=== PATIENT | female | born 1945 | race Caucasian/White ===

== ENCOUNTER → 2022-10-29 10:58 | Outpatient (BNVA) | payer MEDICARE, BC, SELFPAY | PROVIDERS: PCP Family Medicine Adult Medicine; Visit Provider Anesthesiology Pain Medicine | DX: M54.16 Radiculopathy, lumbar region (principal); M47.816 Spondylosis without myelopathy or radiculopathy, lumbar region; M48.00 Spinal stenosis, site unspecified; I34.0 Nonrheumatic mitral (valve) insufficiency; I95.1 Orthostatic hypotension | CPT/HCPCS: 72110; 99204 ==

== ENCOUNTER → 2022-11-07 08:26 | Outpatient (BNVA) | payer MEDICARE, BC, SELFPAY | PROVIDERS: PCP Family Medicine Adult Medicine; Referring Provider Family Medicine Adult Medicine; Visit Provider Physician Assistant | DX: S22.000A Wedge compression fracture of unspecified thoracic vertebra, initial encounter for closed fracture (principal); S32.000A Wedge compression fracture of unspecified lumbar vertebra, initial encounter for closed fracture; M51.37 Other intervertebral disc degeneration, lumbosacral region; M47.816 Spondylosis without myelopathy or radiculopathy, lumbar region; M48.00 Spinal stenosis, site unspecified; W19.XXXA Unspecified fall, initial encounter | CPT/HCPCS: 72100; 99203 ==

== ENCOUNTER 2022-11-28 09:02 | Emergency (ER) | payer MEDICARE, BC, SELFPAY ==
[2022-11-28 09:09] VITALS: BP 132/67; PULSE 90; RESP 16; O2SAT 96; BMI 28.3
--- NOTE | 2022-11-28 09:26 | CT_ITS ---
WS: [id number] CT ABDOMEN PELVIS TECHNIQUE: Contrast-enhanced CT of the abdomen and pelvis with coronal and sagittal reformatted image s. CLINICAL INFORMATION: abd pain COMPARISON: None. DLP: 569.[address] scans at [facility] use at least one of these dose optimization techniques: automated e xposure control; mA and/or kV adjustment per patient size (includes targeted exams where dose is matc hed to clinical indication); or iterative reconstruction. FINDINGS: Images are degraded in the pelvis due to bilateral THAs. Extensive diffuse pneumobilia with air in th e common bile duct. Common bile duct tapers normally distally. Prominent common bile duct measures 10 mm with mild intrahepatic biliary ductal dilatation. This may be physiologic postcholecystectomy. Ga llbladder is not visualized but no cholecystectomy clips seen. Mild diffuse fatty infiltration liver. Normal portal vein and splenic vein. Lung bases are well aera nirav. Small opacity in the RIGHT lower lobe measuring 11 mm likely focal atelectasis or fibrosis. Norm al GE junction. Normal pancreatic parenchymal enhancement. No evidence of acute pancreatitis. Portal vein and splenic vein are patent. Mild intrahepatic biliary duct dilatation. Prior hysterectomy. Large bilateral renal cysts largest on the LEFT measuring 8.9 x 6.2 CM. Bilateral renal cortical atro phy. No hydronephrosis. Adrenal glands are normal. Normal caliber abdominal aorta. Celiac and SMA gabriele ear patent. Moderate stenosis of the SMA origin. Sigmoid diverticulosis. No evidence of acute diverticulitis. Colon is otherwise normal in appearance. Mild fecal retention. A few fluid-filled small bowel loops of small bowel in the abdomen are normal caliber. No evidence of high-grade obstruction. No free air. Advanced spondylitic changes lumbar spin e. Grade 1 anterolisthesis L4 on L5. CT/CT abdomen pelvis w con* [id number] IMPRESSION: 1. Diffuse pneumobilia with air in the common bile duct. Common bile duct tape rs normally distally. Gallbladder is not visualized. Pneumobilia is likely aminta gn. Mild intrahepatic biliary ductal dilatation. 2. Sigmoid diverticulosis. No evidence of acute diverticulitis. 3. A few fluid-filled distended loops of small bowel in the abdomen with mild mucosal enhancement can be seen with small bowel enteritis. No evidence of high -grade obstruction. 4. Large bilateral renal cysts largest in the LEFT measuring 6.2 x 8.9 CM. No hydronephrosis. 5. Normal caliber abdominal aorta. 6. Bilateral THAs degrade images in the pelvis. 7. No other acute findings. Notified Ugo Do DO at 11/28/2022 11:42 AM.
--- NOTE | 2022-11-28 09:30 | W.ED.ABDPA2 ---
HPI - Abdominal Pain General: Chief Complaint: Abdominal Pain Stated Complaint: unable to control bladder Time Seen by Provider: 11/28/22 09:25 Source: patient Mode of arrival: ambulatory History of Present Illness: 76-year-old female presents emergency room with difficulty controlling her bladder as well as having diarrhea. She epigastric pain intermittently last several months. She has a history of pancreatitis and congestive heart failure. Marked worsening swelling around 2 AM with severe diarrhea denies hematochezia melena hematemesis coffee-ground emesis MD elicited complaint: abdominal pain Onset (ago): hour(s) Pain Consistency: constant Location: Epigastric and RUQ Severity: moderate Quality: cramping Radiation: none Exacerbating factors: nothing Relieving factors: nothing Associated Symptoms: Reports anorexia, bloating, change in bowel habits, GI cramping, diarrhea, nausea and poor appetite; Denies belching, change in stool character, chills, coffee ground emesis, constipation, dyspepsia, dysuria, excessive flatus, fever(s), heartburn, hematochezia, hematuria, hematemesis, fecal incontinence, loose stools, melena, syncope and vomiting Review of Systems Const: Denies: fever(s), chills, fatigue or malaise ENMT: Denies: throat pain, ear or mastoid pain, nasal discharge or nasal congestion Card: Denies: chest pain, palpitations, irregular heart rhythm, edema or syncope Resp: Denies: dyspnea, productive cough or non-productive cough GI: Reports: abdominal pain, nausea, diarrhea, bloating, GI cramping and change in bowel habits; Denies: vomiting, hematemesis, coffee ground emesis, heartburn, constipation, belching, excessive flatus, fecal incontinence, change in stool character, hematochezia or melena : Denies: flank pain, dysuria, urinary frequency, urinary urgency or hematuria Skin/Breast: Denies: rash or pruritus PFSH ED PFSH: Medical History (Updated 11/28/22 @ 11:54 by Ugo Do DO) Cardiomyopathy CHF (congestive heart failure) Chronic pain CKD (chronic kidney disease) Congenital spondylolisthesis of lumbar region Depression Diverticulosis small intestine Mitral valve insufficiency Orthostatic hypotension Pleural effusion Pneumonia Pulmonary emboli Pulmonary HTN Restless leg Spinal stenosis Syncope Trigger finger (acquired) Wedge compression fracture of eleventh thoracic vertebra Surgical History (Updated 11/28/22 @ 11:56 by Ugo Do DO) H/O shoulder replacement History of cholecystectomy History of hip replacement History of knee replacement Social History Smoking and tobacco status: never smoked Second hand smoke exposure: No Smoking risk assessment/counseling performed?: No Alcohol intake: never Desire information about alcohol rehabilitation?: No Counseling given: No Desire information about substance/drug rehabilitation?: No Counseling given: No Physical Exam Const: GENERAL APPEARANCE: cooperative and comfortable ORIENTATION/CONSCIOUSNESS: Yes awake, Yes oriented to person, Yes oriented to place and Yes oriented to time HENMT: COMMON NORMALS: normocephalic, atraumatic and hearing grossly normal bilaterally HEAD & SCALP: normocephalic and atraumatic Resp: COMMON NORMALS: normal respiratory effort, No retractions, No use of accessory muscles and clear to auscultation bilaterally AUSCULTATION: clear to auscultation bilaterally Cardio: COMMON NORMALS: regular rate, regular rhythm and No murmurs present (Cardio) RATE: regular rate RHYTHM: regular rhythm GI: COMMON NORMALS: No hepatosplenomegaly present AUSCULTATION: Yes normoactive bowel sounds PALPATION: Yes Tenderness to palpation present (GI) (Epigastric right upper quadrant), No Guarding due to palpation present (GI) and Yes No hepatosplenomegaly present Extremity: COMMON NORMALS: normal to inspection, capillary refill normal, no clubbing, cyanosis or edema, no calf tenderness and no pedal edema Neuro: SENSORIUM/ORIENTATION: Yes oriented to person, Yes oriented to place and Yes oriented to time Skin: COMMON NORMALS: no rashes or lesions noted GENERAL SKIN EXAM: no rashes or lesions noted Course Vital Signs: Vital signs: Vital Signs Pulse Rate 71 11/28/22 09:39 Respiratory Rate 16 11/28/22 09:39 Blood Pressure 132/67 11/28/22 09:39 Pulse Oximetry 100 11/28/22 09:39 Oxygen Delivery Me thod 11/28/22 09:09 MDM - Abdominal Pain Medical Decision Making Labs imaging and EKG reviewed. Patient has mild gastroenteritis there is no sign of pancreatitis. She is feeling much better after fluids we will discharge her home antiemetics clinical diet 24 to 40 hours advance as tolerated return if has further problems. Medical Records I reviewed the patient's medical records. Lab Data I reviewed the patient's lab results. 11/28/22 09:34 11/28/22 09:34 Labs/Radiology: Radiology Impressions Abdomen/Pelvis CT 11/28/22 09:26 IMPRESSION: 1. Diffuse pneumobilia with air in the common bile duct. Common bile duct tapers normally distally. Gallbladder is not visualized. Pneumobilia is likely benign. Mild intrahepatic biliary ductal dilatation. 2. Sigmoid diverticulosis. No evidence of acute diverticulitis. 3. A few fluid-filled distended loops of small bowel in the abdomen with mild mucosal enhancement can be seen with small bowel enteritis. No evidence of high-grade obstruction. 4. Large bilateral renal cysts largest in the LEFT measuring 6.2 x 8.9 CM. No hydronephrosis. 5. Normal caliber abdominal aorta. 6. Bilateral THAs degrade images in the pelvis. 7. No other acute findings. Notified Ugo Do DO at 11/28/2022 11:42 AM. Laboratory Results WBC 10.3 10^3/uL (4.0-10.0) H 11/28/22 09:34 RBC 3.90 10^6/uL (4.1-5.3) L 11/28/22 09:34 Hgb 11.3 g/dL (11.5-15.3) L 11/28/22 09:34 Hct 36.2 % (37.0-47.0) L 11/28/22:34 MCV 92.8 fl (81-99) 11/28/22 09:34 MCH 29.0 pg (28.0-34.0) 11/28/22 09:34 MCHC 31.2 g/dL (30.0-36.0) 11/28/22 09:34 RDW 13.6 % (12.1-15.1) 11/28/22 09:34 Plt Count 278 10^3/cmm (130-400) 11/28/22 09:34 MPV 9.6 fL (7.4-10.4) 11/28/22 09:34 Neut % (Auto) 69.0 % 11/28/22:34 Lymph % (Auto) 20.5 % 11/28/22 09:34 Carolina % (Auto) 6.8 % 11/28/22 09:34 Eos % (Auto) 3.1 % 11/28/22 09:34 Baso % (Auto) 0.3 % 11/28/22 09:34 Neut # (Auto) 7.14 10^3/uL (1.8-7.7) 11/28/22 09:34 Lymph # (Auto) 2.1 10^3/uL (0.8-4.8) 11/28/22 09:34 Carolina # (Auto) 0.7 10^3/uL (0.2-0.9) 11/28/22 09:34 Eos # (Auto) 0.3 10^3/uL (0.0-0.8) 11/28/22 09:34 Baso # (Auto) 0.0 10^3/uL (0.0-0.1) 11/28/22 09:34 Nucleated RBC % (auto) 0 % 11/28/22 09:34 Nucleated RBCs # 0.0 /100WBC 11/28/22 09:34 Sodium 140 mmol/L (136-145) 11/28/22 09:34 Potassium 4.6 mmol/L (3.5-5.1) 11/28/22 09:34 Chloride 101 mmol/L (98-107) 11/28/22 09:34 Carbon Dioxide 27 mmol/L (22-29) 11/28/22 09:34 Anion Gap 16.6 (5-19) 11/28/22 09:34 BUN 28 mg/dL (8-23) H 11/28/22 09:34 Creatinine 1.5 mg/dL (0.5-0.9) H 11/28/22 09:34 GFR Calculation Not Reportable 11/28/22 09:34 Glucose 103 mg/dL (65-115) 11/28/22 09:34 Calculated Osmolality 296 mOsm/kg (285-295) H 11/28/22 09:34 Calcium 9.4 mg/dL (8.5-10.5) 11/28/22 09:34 Total Bilirubin 0.5 mg/dL (0.15-1.2) 11/28/22 09:34 AST 22 U/L (0-32) 11/28/22 09:34 ALT 12 U/L (0-33) 11/28/22 09:34 Alkaline Phosphatase 104 U/L (35-105) 11/28/22 09:34 Total Protein 7.4 g/dL (6.6-8.7) 11/28/22 09:34 Albumin 4.3 g/dL (3.5-5.2) 11/28/22 09:34 Globulin 3.1 g/dL (1.3-4.6) 11/28/22 09:34 Lipase 32 U/L (13-60) 11/28/22 09:34 Urine Color Yellow (Yellow) 11/28/22 09:47 Urine Appearance Clear (CLEAR) 11/28/22 09:47 Urine pH 5 (5-7) 11/28/22 09:47 Ur Specific Skippers 1.015 (1.005-1.030) 11/28/22 09:47 Urine Protein Neg (Negative) 11/28/22 09:47 Urine Glucose (UA) Norm (Normal) 11/28/22 09:47 Urine Ketones Negative (Negative) 11/28/22 09:47 Urine Blood Neg (Negative) 11/28/22 09:47 Urine Nitrate Negative (Negative) 11/28/22 09:47 Urine Bilirubin Neg (Negative) 11/28/22 09:47 Urine Urobilinogen Neg mg/dL (Negative) 11/28/22 09:47 Ur Leukocyte Esterase Negative (Negative) 11/28/22 09:47 Discharge Plan Discharge Patient Disposition: Home Clinical Impression: Gastroenteritis Condition: Stable Prescriptions: New ondansetron HCl 4 mg tablet 4 mg PO Q6H PRN (Reason: nausea and vomiting) Qty: 20 0RF No Action metoprolol tartrate 25 mg tablet 25 mg PO DAILY ropinirole 4 mg tablet 4 mg PO DAILY paroxetine HCl 20 mg tablet 20 mg PO DAILY losartan 25 mg tablet 25 mg PO DAILY oxycodone 10 mg tablet 10 mg PO BID PRN Eliquis 5 mg tablet 5 mg PO BID trazodone 100 mg tablet 100 mg PO DAILY furosemide 20 mg tablet 20 mg PO DAILY gabapentin 100 mg capsule 100 mg PO QID Qty: 360 2RF Discharge Orders: Discharge ED (Routine); Ordered 11/28/22 Ordered By: Ugo Do Referrals: Fernando Gaitan MD [Primary Care Provider] - Activity Restrictions/Additional Instructions: You were seen today for diarrhea and abdominal discomfort. CT and labs were relatively unremarkable there is no sign of pancreatitis you did have some irritation of the small bowel which likely is what was causing your symptoms. Clear liquid diet for 24 to 48 hours and use ondansetron as needed for nausea or vomiting relief of abdominal cramping. Coding Level of Care Code ED Punch Out Crew Member for Sukumar Will
[2022-11-28 09:39] VITALS: BP 132/67; PULSE 71; RESP 16; O2SAT 100
[2022-11-28 09:56] LABS: Basophils % 0.3 %; Eosinophils # 0.3 10^3/uL (0.0-0.8); Eosinophils % 3.1 %; Hematocrit 36.2 % (37.0-47.0); Hemoglobin 11.3 g/dL (11.5-15.3); Lymphocytes # 2.1 10^3/uL (0.8-4.8); Lymphocytes % 20.5 %; Mean Corpuscular HGB Conc 31.2 g/dL (30.0-36.0); Mean Corpuscular Volume 92.8 fl (81-99); Mean Platelet Volume 9.6 fL (7.4-10.4); Monocytes # 0.7 10^3/uL (0.2-0.9); Monocytes % 6.8 %; Neutrophils # 7.14 10^3/uL (1.8-7.7); Nucleated Red Blood Cells % 0 %; Platelet Count 278 10^3/cmm (130-400); Red Cell Distribution Width 13.6 % (12.1-15.1); White Blood Count 10.3 10^3/uL (4.0-10.0)
[2022-11-28 10:08] LABS: Add Urine Microscopic? NO; Charge for UA Resulting for Rev
[2022-11-28 10:12] LABS: Alanine Aminotransferase 12 U/L (0-33); Albumin Level 4.3 g/dL (3.5-5.2); Alkaline Phosphatase 104 U/L (35-105); Aspartate Amino Transferase 22 U/L (0-32); Blood Urea Nitrogen 28 mg/dL (8-23); Calcium 9.4 mg/dL (8.5-10.5); Carbon Dioxide 27 mmol/L (22-29); Chloride 101 mmol/L (98-107); Globulin 3.1 g/dL (1.3-4.6); Glucose 103 mg/dL (65-115); Lipase 32 U/L (13-60); Osmolality Calculated 296 mOsm/kg (285-295); Sodium 140 mmol/L (136-145); Total Bilirubin 0.5 mg/dL (0.15-1.2); Total Protein 7.4 g/dL (6.6-8.7)
[2022-11-28 10:15] LABS: Bilirubin Urine Neg (Negative); Blood Urine Neg (Negative); Glucose Urine UA Norm (Normal); Ketones Urine Negative (Negative); Leukocyte Esterase Urine Negative (Negative); Nitrate Urine Negative (Negative); Protein Urine Neg (Negative); Specific Gravity, Urine 1.015 (1.005-1.030); Urine Appearance Clear (CLEAR); Urine Color Yellow (Yellow); Urobilinogen Urine Neg (Negative); pH Urine 5 (5-7)
[2022-11-28 10:18] LABS: Anion Gap 16.6 (5-19); Potassium 4.6 mmol/L (3.5-5.1)
[2022-11-28] MEDS: iohexol 350 mg/mL 500 mL Btl (per mL) IV (10:51)
[2022-11-28 11:00] VITALS: BP 127/71; PULSE 78; RESP 16; O2SAT 99
[2022-11-28 12:15] VITALS: BP 112/61; PULSE 82; RESP 16; O2SAT 98
== END 2022-11-28 12:16 | disposition home or self-care (01) ==
PROVIDERS: Physician Assistant; Emergency Provider Family Medicine; PCP Family Medicine Adult Medicine
DX: K52.9 Noninfective gastroenteritis and colitis, unspecified (principal); Z79.01 Long term (current) use of anticoagulants; N18.9 Chronic kidney disease, unspecified; I50.9 Heart failure, unspecified; I27.20 Pulmonary hypertension, unspecified; K57.30 Diverticulosis of large intestine without perforation or abscess without bleeding
CPT/HCPCS: 74177; 80053; 81003; 83690; 85025; 99285; Q9967

== ENCOUNTER → 2022-12-02 14:51 | Outpatient (BNVA) | payer MEDICARE, BC, SELFPAY | PROVIDERS: PCP Family Medicine Adult Medicine; Visit Provider Internal Medicine Cardiovascular Disease | DX: I42.9 Cardiomyopathy, unspecified (principal); I34.0 Nonrheumatic mitral (valve) insufficiency; I50.9 Heart failure, unspecified; I26.99 Other pulmonary embolism without acute cor pulmonale; I27.20 Pulmonary hypertension, unspecified | CPT/HCPCS: 99205 ==

== ENCOUNTER 2022-12-12 13:40 | Outpatient (CLI) | payer MEDICARE, BC, SELFPAY ==
--- NOTE | 2022-12-12 13:45 | MR_ITS ---
WS: [id number] MRI LUMBAR SPINE NONCONTRAST TECHNIQUE: Sagittal T1, T2 and STIR imaging. Axial T1 and T2 imaging. CLINICAL INFORMATION: pain COMPARISON: None. FINDINGS: Mild lumbar curve. No acute compression. Grade 1 anterolisthesis L4 on L5. Chronic compression deform ity T12. No edema. No acute compression fractures. L1-L2: Mild disc bulging with slight effacement of ventral thecal sac. Mild central canal stenosis. M oderate facet arthropathy. Mild LEFT greater than RIGHT foraminal narrowing. L2-L3: Slight retrolisthesis. Disc bulging in combination with facet arthropathy results in moderate central canal stenosis. Impingement traversing L3 nerve roots bilaterally. Moderate facet arthropathy . Moderate bilateral foraminal narrowing. L3-L4: Disc bulging in combination with facet arthropathy and slight anterolisthesis results in moder ate central canal stenosis with impingement traversing L4 nerve roots bilaterally. Mild RIGHT and no significant LEFT foraminal narrowing. L4-L5: Grade 1 anterolisthesis L4 on L5 with severe central canal stenosis. Near complete effacement of the thecal sac. Impingement traversing L5 nerve roots bilaterally. Advanced facet arthropathy. Mod erate to severe LEFT and mild RIGHT bony foraminal narrowing. L5-S1: Shallow LEFT pericentral protrusion impinges the traversing LEFT S1 nerve root in the subartic ular recess. Moderate facet arthropathy. Foramen are patent. Partially visualized large LEFT greater than RIGHT renal cysts recently described on the CT abdomen p stanley. Visualized pelvic bony structures: Normal. Paravertebral soft tissues: Normal. MR/MR lumbar spine wo con* [id number] IMPRESSION: 1. Mild lumbar curve. No acute compression. 2. Chronic compression with anterior wedging at T12. No edema. 3. Grade 1 anterolisthesis L4 on L5 with severe central canal stenosis near co mplete effacement of the thecal sac. Impingement traversing L5 nerve roots bila terally. 4. Moderate central canal stenosis L2-L3 and L3-L4 due to disc bulging in comb ination with facet arthropathy ligamentum flavum hypertrophy. 5. Advanced facet arthropathy L4-L5. 6. Severe LEFT L4-L5 bony foraminal narrowing. 7. Moderate bilateral L2-L3 foraminal narrowing. 8. Shallow LEFT pericentral protrusion L5-S1 impinges the traversing LEFT S1 n erve root in the subarticular recess.
--- NOTE | 2022-12-12 14:30 | MR_ITS ---
WS: [id number] MRI THORACIC SPINE WITHOUT CONTRAST TECHNIQUE: Sagittal T1, T2 and STIR imaging. Axial T2 imaging. Noncontrast imaging obtained. CLINICAL INFORMATION: pain COMPARISON: None. FINDINGS: Mild thoracic curve. Mild thoracic kyphosis. Anterior wedging with compression of the T12 vertebral b abhinav has a chronic appearance. No significant edema. Cord signal is normal. No acute appearing rosa maria nicki fractures. Grade 1 anterolisthesis L4 on L5. Mild disc bulging with small disc protrusions throughout the thoracic spine more prominent at T5-T6, T6-T7, T7-T8, T8-T9, T9-T10, T10-T11, T11-T12, T12-L1, L1-L2, and L2-L3. Moderate facet arthropathy in the lower thoracic spine. Mild bilateral bony foraminal narrowing T8-T9 , T9-T10, T10-T11, LEFT T11-T12, bilateral T12-L1. Adrenal glands are normal. Large LEFT renal cyst partially visualized measuring 7 to 8 cm. MR/MR thoracic spin wo con* [id number] IMPRESSION: 1. No acute compression fractures. 2. Chronic compression with anterior wedging at T12. No edema. 3. No high-grade central canal stenosis. Cord signal is normal. 4. Shallow disc protrusions throughout the thoracic spine at T6-T12 described above. 5. Moderate central canal stenosis in the cervical spine taxicab starter imaging. 6. No other acute findings.
== END 2022-12-12 13:41 | disposition home or self-care (01) ==
LOC: RAD 13:43
PROVIDERS: PCP Family Medicine Adult Medicine; Visit Provider Physician Assistant
DX: M48.54XA Collapsed vertebra, not elsewhere classified, thoracic region, initial encounter for fracture (principal); M51.24 Other intervertebral disc displacement, thoracic region; M48.02 Spinal stenosis, cervical region; M51.27 Other intervertebral disc displacement, lumbosacral region; M48.061 Spinal stenosis, lumbar region without neurogenic claudication; M47.816 Spondylosis without myelopathy or radiculopathy, lumbar region
CPT/HCPCS: 72146; 72148

== ENCOUNTER → 2022-12-17 13:36 | Outpatient (BNVA) | payer MEDICARE, BC, SELFPAY | PROVIDERS: PCP Family Medicine Adult Medicine; Visit Provider Physician Assistant | DX: M47.816 Spondylosis without myelopathy or radiculopathy, lumbar region (principal); M48.061 Spinal stenosis, lumbar region without neurogenic claudication; M65.30 Trigger finger, unspecified finger | CPT/HCPCS: 99213 ==